=== PATIENT | male | born 1930 | race Caucasian/White ===

== ENCOUNTER 2016-06-24 12:23 | Emergency (ER) | payer OTHER ==
[~2016-06-24] VITALS: Ht 185.4 cm; Wt 110.8 kg
[~2016-06-24 12:23] MED LIST: ASPIRIN EC325 MG PO; ATIVAN0.5 MG PO; ATORVASTATIN CA40 MG PO; B COMPLETE1 EACH PO; CARVEDILOL3.125 MG PO; CEFTIN500 MG PO; FINASTERIDE5 MG PO; FUROSEMIDE20 MG PO; GALANTAMINE HBR4 MG PO; LIPITOR80 MG PO; LITE COAT ASPI325 M1 PO; LO-DOSE ASPIRIN81 M1 PO; LORAZEPAM0.5 MG PO; NAMENDA XR28 MG PO; NITROSTAT0.4 MG SL; NYSTATIN15 GM TP; PANTOPRAZOLE SO40 MG PO; PLAVIX75 MG PO; SEROQUEL100 MG PO; SEROQUEL12.5 MG PO; SEROQUEL50 MG PO; TAMSULOSIN HCL0.4 MG PO; TYLENOL REGULA325 MG PO; VITAMIN D31000 UNI2 PO
[2016-06-24 13:16] LABS: EOSINOPHIL (%) 5.9 % (0-5); EOSINOPHIL COUNT 0.3 K/uL (0-0.3); HEMATOCRIT 40.6 % (38.0-50.0); IMMATURE GRANULOCYTE (%) 0.2 % (0.0-0.7); IMMATURE GRANULOCYTE COUNT 0.1 K/uL; LYMPHOCYTE COUNT 1.4 K/uL (1.0-2.8); MCH 30.5 PG (29.0-34.0); MCHC 34.2 G/DL (30.0-36.0); MEAN PLAT.VOLUME 10.2 uM^3 (9.0-12.4); MONOCYTE (%) 7.7 % (3-12); MONOCYTE COUNT 0.4 K/uL (0-0.8); NEUTROPHIL COUNT 3.6 K/uL (1.8-6.4); PLATELET COUNT 132 K/uL (156-360); RBC DIS.WIDTH-CV 13.9 % (11.8-14.6); RBC DIS.WIDTH-SD 44.5 % (39-53); RED BLOOD COUNT 4.56 M/uL (4.00-5.50); WHITE BLOOD COUNT 5.7 K/uL (4.1-10.2)
[2016-06-24 13:25] LABS: INTER. NORMALIZED RATIO 1.2; PROTHROMBIN TIME 11.9 (9.2-11.2)
[2016-06-24 13:27] LABS: CHLORIDE 107 mEq/L (99-109); POTASSIUM 3.7 mEq/L (3.7-5.4); SODIUM 141 mEq/L (136-147)
[2016-06-24 13:29] LABS: GLUCOSE 143 mg/dL (70-99)
[2016-06-24 13:30] LABS: ANION GAP 11 MEQ/L (2-14)
[2016-06-24 13:31] LABS: TOTAL BILIRUBIN 0.9 mg/dL (0.0-1.0)
[2016-06-24 13:32] LABS: ALKALINE PHOSPHATASE 86 IU/L (3-129)
[2016-06-24 13:33] LABS: GFR ESTIMATE (CALCULATED) 47 mL/min/
[2016-06-24 13:34] LABS: UREA NITROGEN (BUN) 18 mg/dL (9-23)
[2016-06-24 13:36] LABS: LIPASE 25 U/L (1.0-51.0); TROP-I INTERPRETATION NEGATIVE; TROPONIN-I < 0.01 ng/mL (0.0-0.30)
[2016-06-24 13:49] LABS: ADD MIUA? YES; BILIRUBIN NEGATIVE; BLOOD TRACE; COLOR YELLOW ((YELLOW)); GLUCOSE (STRIP) NEGATIVE; KETONES NEGATIVE; LEUKOCYTES NEGATIVE; NITRITE NEGATIVE; PH, URINE 7.5 (5-8); PROTEIN (STRIP) NEGATIVE; SPECIFIC GRAVITY 1.014 (1.000-1.030)
[2016-06-24 14:02] LABS: BACTERIA NONE SEEN; CASTS NONE SEEN /LPF; CRYSTALS NONE SEEN; EPITHELIAL CELLS RARE; MUCUS NONE SEEN; PATHOLOGICAL CAST NONE SEEN; RED BLOOD CELLS 0-5 /HPF (0-5); SMALL ROUND CELL NONE SEEN; UCUL ADDED? NO; WHITE BLOOD CELLS 0-5 /HPF (0-5); YEAST-LIKE CELL NONE SEEN
[2016-06-24] MEDS ORDERED: DEPAKOTE SPRIN125 MG PO (15:25)
[2016-06-24 16:20] VITALS: BP 122/74
== END 2016-06-24 16:23 | disposition home or self-care (01) ==
LOC: EME 12:23
PROVIDERS: Emergency Medicine
DX: G45.9 Transient cerebral ischemic attack, unspecified (principal); F03.90 Unspecified dementia, unspecified severity, without behavioral disturbance, psychotic disturbance, mood disturbance, and anxiety; R47.1 Dysarthria and anarthria; I10 Essential (primary) hypertension; E78.5 Hyperlipidemia, unspecified; Z86.718 Personal history of other venous thrombosis and embolism; Z79.82 Long term (current) use of aspirin; Z79.02 Long term (current) use of antithrombotics/antiplatelets
CPT/HCPCS: 70450; 71010; 80053; 81003; 83605; 83690; 84484; 85025; 85610; 85730; 87040; 93005; 99281; 99284